=== PATIENT | female | born 1995 | race Caucasian/White ===

== ENCOUNTER 2020-01-16 13:32 | Inpatient (IN) | payer MEDICAID ==
[~2020-01-16] VITALS: Ht 157.5 cm; Wt 66.2 kg
[2020-01-16] MEDS ORDERED: MACROBID100 MG (19:11)
[2020-01-16] MEDS ORDERED: PENICILLIN V P500 MG (19:11)
[2020-01-16] MEDS ORDERED: PERCOCET 5-3251 TAB (19:11)
[2020-01-16 19:12] VITALS: BP 128/70; Ht 157.5 cm; Wt 66.2 kg
[2020-01-16 20:19] LABS: HEMATOCRIT 30.8 % (36.0-48.0); HEMOGLOBIN 10.1 g/dL (12-16); MCH 30.4 pg (26.0-34.0); MCHC 32.8 g/dL (31.0-37.0); MCV 92.8 fL (80.0-100.0); MEAN PLATELET VOLUME 9.3 fL (7.4-10.4); RBC 3.32 10x6/uL (4.00-5.40); WBC 10.3 10x3/uL (4.8-10.8)
[2020-01-16 21:45] LABS: APPEARANCE CLOUDY (CLEAR); BILIRUBIN NEGATIVE (NEGATIVE); COLOR YELLOW (YELLOW); GLUCOSE 50 mg/dL (NEGATIVE); KETONE MODERATE mg/dL (NEGATIVE); NITRITE NEGATIVE (NEGATIVE); PROTEIN NEGATIVE (NEGATIVE); UROBILINOGEN NORMAL (NORMAL)
[2020-01-16 21:46] LABS: AMORPHOUS SEDIMENT >1+ /lpf (NONE SEEN); BACTERIA MANY /hpf (NEGATIVE); EPITHELIAL CELLS 0-5 /hpf (0-5); GRANULAR CAST 0-5 /lpf (NONE SEEN); HYALINE CAST 0-5 /lpf (NONE SEEN)
--- NOTE | 2020-01-17 20:49 | NUR ---
PT MOVED TO ROOM 1273.
[2020-01-17 23:42] VITALS: BP 102/66
--- NOTE | 2020-01-17 23:42 | NUR ---
VSS. FUNDUS FIRM, MIDLINE, 1 BELOW UMBILICUS, SCANT RUBRA LOCHIA NOTED ON PAD. PT WOULD LIKE TO HAVE NURSERY WATCH BABY WHILE SHE TAKES A SHOWER AND TAKES A NAP.
--- NOTE | 2020-01-17 23:51 | NUR ---
BABY TAKEN TO NURSERY VIA CRIB BY THIS RN. PT UP TO TAKE CHG BATH. PT PROVIDED WITH FRESH LINEN, GOWN, BRIEFS, AND PADS. PT STATES THAT ALL HER OTHER NEEDS HAVE BEEN MET AT THIS TIME. PT WILL CALL OUT IF SHE NEEDS ANY ADDITIONAL HELP. U.O. IN URINE HAT 500ML. BED IN LOWEST POSITON, SIDE RAILS UP X2, CALL LIGHT IN REACH.
[2020-01-18 04:58] VITALS: BP 99/56
--- NOTE | 2020-01-18 04:58 | NUR ---
VSS. FUNDUS FIRM, MIDLINE, 1 BELOW, SCANT RUBRA LOCHIA NOTED. PT STATES PAIN IS 2/10 IN ABDOMIN AND BACK. PT STATES ALL HER NEEDS ARE MET. BED IN LOWEST POSITION, SIDE RAILS UPX2, CALL LIGHT WITHIN REACH. MOTHER OF PT AT BEDSIDE, AT BEDSIDE.
[2020-01-18 05:09] LABS: RAPID PLASMA REAGIN Non Reactive (Non Reactive)
[2020-01-18 05:50] LABS: BASOPHILS 0.1 % (0-2); EOSINOPHILS 0.4 % (0-7); HEMATOCRIT 33.4 % (36.0-48.0); HEMOGLOBIN 10.8 g/dL (12-16); IMMATURE GRANULOCYTES 0.5 % (0-5); LYMPHOCYTES 22.3 % (15-50); MCH 30.2 pg (26.0-34.0); MCHC 32.3 g/dL (31.0-37.0); MCV 93.3 fL (80.0-100.0); MEAN PLATELET VOLUME 9.3 fL (7.4-10.4); MONOCYTES 7.1 % (2-11); NEUTROPHILS 69.6 % (40-80); PLATELET COUNT 246 10x3/uL (130-400); RBC 3.58 10x6/uL (4.00-5.40); RDW 14.9 % (11.5-14.5)
[2020-01-18 06:05] LABS: WBC 14.2 10x3/uL (4.8-10.8)
--- NOTE | 2020-01-18 07:20 | NUR ---
BEDSIDE REPORT COMPLETED, DENIES NEEDS. IN ARMS. WILL MONITOR.
--- NOTE | 2020-01-18 07:50 | NUR ---
ROUNDS COMPLETED, WILL MONITOR. NAD NOTED AT THIS TIME. REVIEWED PLAN OF CARE TODAY.
[2020-01-18 08:56] VITALS: BP 105/62
--- NOTE | 2020-01-18 08:56 | NUR ---
ROUNDS COMPLETED, VSS, AFEBRILE, RESP EVEN AND UNLABORED. NAD NOTED. CALL LIGHT IN EASY REACH.
--- NOTE | 2020-01-18 09:40 | NUR ---
ROUNDS COMPLETED,NAD NOTED. DENIES NEEDS. WILL MONITOR.
--- NOTE | 2020-01-18 10:10 | NUR ---
DR KELLOGG TO PT ROOM, DISCUSSED PLAN OF CARE, CONTROL OPTIONS AFTER DISCHARGE. QUESTIONS ANSWERED. NAD NOTED. WILL MONITOR FOR CHANGE IN CONDITION.
--- NOTE | 2020-01-18 11:43 | NUR ---
SCHEDULED TORADOL ADMINISTERED, CYTOTEC ALSO GIVEN WITH SIPS WATER. DENIES OTHER NEEDS AT THIS TIME, FAMILY AT BS. SPOUSE SUPPORTIVE. NAD NOTED. CONTINUE TO MONITOR.
--- NOTE | 2020-01-18 12:20 | NUR ---
ROUNDS COMPLETED, NAD NOTED. TOLERATING PO INTAKE WELL. DENIES NEEDS. FRIENDS AND FAMILY AT BS. CONTINUE TO MONITOR. CALL LIGHT IN EASY REACH. FUNDUS FIRM AT U/1 AND MIDLINE. LOCHIA SMALL AMOUNT.
--- NOTE | 2020-01-18 13:40 | NUR ---
ROUNDS COMPLETED, NAD NOTED. CONSUMED 100% MEAL PROVIDED. DENIES NEEDS OR CONCERNS. RESP EVEN AND UNLABORED, CALL LIGHT IN EASY REACH, SPOUSE AT BS.
--- NOTE | 2020-01-18 14:40 | NUR ---
ROUNDS COMPLETED, DENIES NEEDS OR CONCERNS, DENIES C/O PAIN. WILL MONITOR.
--- NOTE | 2020-01-18 15:35 | NUR ---
ROUNDS COMPLETED, DENIES NEEDS OR CONCERNS, RESP EVEN AND UNLABORED, FUNDUS FIRM AT U/1 AND MIDLINE, LOCHIA SMALL AMOUNT, REPORTS SMALL CLOTS PASSED WITH LAST VOID, PERFORMS SELF-PERICARE WITH BETADINE AND WATER POST-VOID INDEPENDENTLY. WILL MONITOR.
--- NOTE | 2020-01-18 16:19 | NUR ---
ROUNDS COMPLETED. RESP EVEN AND UNLABORED, CALL LIGHT IN EASY REACH. NAD NOTED. WILL MONITOR.
--- NOTE | 2020-01-18 17:25 | NUR ---
rounds completed, nad noted. sitting upright in bed, will monitor.
--- NOTE | 2020-01-18 18:37 | NUR ---
scheduled toradol given with water. cup of ice water provided upon request. pt states spouse left to go get her some more food. call light in easy reach.
--- NOTE | 2020-01-18 19:18 | NUR ---
FUNDUS FIRM, MIDLINE, 2 BELOW, SCANT RUBRA LOCHIA NOTED. PT STATES PAIN IS 1-2/10 ON PAIN SCALE, PT HAD REFUSED SCHEDULED PAIN MED. PT STATES ALL HER NEEDS ARE CURRENTLY MET. BED IN LOWEST POSITION, SIDE RAILS UP X2, CALL LIGHT WITHIN REACH.
[2020-01-18 21:30] VITALS: BP 114/69
--- NOTE | 2020-01-19 01:18 | NUR ---
FUNDUS FIRM, MIDLINE, 2 BELOW, SCANT RUBRA LOCHIA NOTED ON PERIPAD. FOB AT BEDSIDE SLEEPING, PT STATES ALL HER NEEDS ARE CURRENTLY MET. BED IN LOWEST POSITION, SIDE RAILS UP X2, CALL LIGHT WITHIN REACH.
[2020-01-19 06:40] VITALS: BP 127/86
--- NOTE | 2020-01-19 06:41 | NUR ---
VSS. PT'S FUNDUS IS FIRM, MIDLINE, AND 2 BELOW, INFANT IN PT'S ARMS BONDING. FOB AT BEDSIDE SLEEPING. BED IN LOWEST POSITION, SIDE RAILS UP X2, CALL LIGHT WITHIN REACH.
[2020-01-19 07:46] VITALS: BP 114/90
[2020-01-19 09:03] VITALS: BP 126/82
--- NOTE | 2020-01-19 11:39 | NUR ---
SITTING UP IN BED HOLDING . DENIES NEEDING ANYTHING, DENIES PAIN. GAVE PT COPY OF IMMUNIZATIONS RECORD. LAST TDAP WAS IN 2009. VERBAL AND WRITTEN INFORMATION ON TDAP GIVEN. DESIRES TO RECIEVE TODAY BEFORE GOING HOME. FOB IN ROOM. NO REQUESTS.
--- NOTE | 2020-01-19 12:21 | NUR ---
AMBULATING ROOM, PACKING TO GET READY TO GO HOME. TDAP GIVEN IN RIGHT DELTOID WITHOUT DIFFICULTY. DENIES PAIN TODAY AND DECLINED TORADOL. READ HEALTH DEPARTMENT INFORMATION ON TDAP PRIOR TO VACCINATION. NO QUESTIONS. TO CALL IF ANYTHING IS NEEDED. FOB AND IN ROOM.
--- NOTE | 2020-01-19 13:43 | NUR ---
SITTING UP ON COUCH. DRESSED AND READY TO GO HOME. DISCUSSED CYTOTEC MEDICATION DECLINES AT THIS TIME. SAYS SHE HAS NOT HAD VERY MUCH BLEEDING. NO REQUESTS. TO CALL IF ANYTHING IS NEEDED. VISITORS X 2 AND INFANT IN ROOM.
--- NOTE | 2020-01-19 17:56 | NUR ---
DC TEACHING COMPLETED TO INCLUDE ROUTINE PP CARE, PP DEPRESSION, DANGER SIGNS, SIGNS OF INFECTION, BREASTCARE, VACCINATIONS AND FOLLOW-UP. NO SPECIFIC QUESTIONS ASKED. VERBALIZED UNDERSTANDING. VERBAL AND WRITTEN INFORMATION GIVEN. DENIES NEEDING ANYTHING. INFANT CAN BE DC'D AFTER 1830. TO CALL IF ANYTHING NEEDED. INFANT AND FOB IN ROOM.
--- NOTE | 2020-01-19 18:29 | NUR ---
DC'D AMBULATORY. DECLINED WHEELCHAIR. FOB AND FAMILY PRESENT. ALL BELONGINGS REMOVED FROM ROOM. IN CARSEAT. PT WILL CALL TOMORROW TO SCHEDULE F/U APPOINTMENT.
--- NOTE | 2020-01-20 12:15 | MORECARE ---
CASE MANAGEMENT DISCHARGE SUMMARY PATIENT: CATHY ABBASI UNIT: [id number] ADM DATE: 01/16/20 AGE: 24 : [birth year] SEX: F ROOM/BED: D.1273 AUTHOR: ELIEL WHITTINGTON PHYSICIAN: REFERRING PHYSICIAN: NEREYDA KELLOGG MD DATE OF SERVICE: 01/20/20 Discharge Plan Patient Name: CATHY ABBASI Facility: [facility]:[place] : 1995 Planned Disposition: Home Anticipated Discharge Date: 01/19/20 Discharge Date: 01/19/2020 Expected LOS: 3 Initial Reviewer: [email or web address] Initial Review Date: 01/16/2020 Generated: 01/20/20 1:15 pm Patient Name: CATHY ABBASI Page [id number] at 1215 All edits/amendments must be made on the electronic document DICTATION DATE: 01/20/20 1215 SURGICAL RN: KOTA 01/20/20 1215 RPT#: [id number] DC DATE:01/19/20 STATUS: DIS IN [facility] [address] [place] [address] END OF REPORT
== END 2020-01-19 18:30 | disposition home or self-care (01) | DRG 807 ==
LOC: D.LDO 13:32 → D.LD 18:52
PROVIDERS: ADMIT Obstetrics & Gynecology; ATTEND Obstetrics & Gynecology
PROC: 10907ZC Drainage of Amniotic Fluid, Therapeutic from Products of Conception, Via Natural or Artificial Opening (ICD-10-PCS; 2020-01-16)
PROC: 3E033VJ Introduction of Other Hormone into Peripheral Vein, Percutaneous Approach (ICD-10-PCS; 2020-01-16)
PROC: 10E0XZZ Delivery of Products of Conception, External Approach (ICD-10-PCS; principal; 2020-01-17)
DX: O70.0 First degree perineal laceration during delivery (principal); Z37.0 Single live birth; Z3A.39 39 weeks gestation of pregnancy; Z87.891 Personal history of nicotine dependence